=== PATIENT | female | born 1995 | race African-American/Black ===

== ENCOUNTER 2016-11-21 11:56 | Emergency (ER) | payer MEDICAID ==
[~2016-11-21] VITALS: Ht 154.9 cm; Wt 70.6 kg
[2016-11-21 11:58] VITALS: BP 129/69
== END 2016-11-21 12:47 | disposition home or self-care (01) ==
LOC: ED 12:41
DX: O26.891 Other specified pregnancy related conditions, first trimester (principal); J02.0 Streptococcal pharyngitis
CPT/HCPCS: 99283

== ENCOUNTER 2016-11-30 15:30 | Emergency (ER) | payer MEDICAID ==
[~2016-11-30] VITALS: Ht 167.6 cm; Wt 69.4 kg
[2016-11-30] MEDS ORDERED: SODIUM CHLORIDE 0.9% 1,000ML IVBOLUS ONE (16:00)
[2016-11-30] MEDS ORDERED: SODIUM CHLORIDE FLUSH 10ML SYR IVF ONE (16:00)
[2016-11-30 16:45] LABS: BLOOD UREA NITROGEN 11 mg/dL (7-18)
[2016-11-30 17:04] LABS: ANISOCYTOSIS 1+
[2016-11-30 17:05] LABS: ASPARTATE AMINO TRANSFERASE 11 U/L (15-37); HYPOCHROMIA 1+; MICROCYTOSIS 1+
[2016-11-30 17:23] VITALS: BP 104/55
[2016-11-30] MEDS ORDERED: CEFTRIAXONE PMX 1GM/50ML 50 ML ONE (17:40)
[2016-11-30] MEDS ORDERED: CEFTRIAXONE PMX 1GM/50ML 50 ML IV ONE (18:00)
== END 2016-11-30 18:17 | disposition home or self-care (01) ==
LOC: ED 18:08
DX: O23.12 Infections of bladder in pregnancy, second trimester (principal); N30.90 Cystitis, unspecified without hematuria; O23.41 Unspecified infection of urinary tract in pregnancy, first trimester; N39.0 Urinary tract infection, site not specified; Z3A.14 14 weeks gestation of pregnancy
CPT/HCPCS: 36415; 76801; 80053; 81001; 84702; 85025; 87086; 87147; 96361; 96365; 99285; J0696; J7030

== ENCOUNTER 2017-02-01 20:34 | Outpatient (CLI) | payer MEDICAID ==
[~2017-02-01] VITALS: Ht 167.6 cm; Wt 75.0 kg
[2017-02-01 21:01] LABS: DAU SCREEN DISCLAIMER
[2017-02-01] MEDS ORDERED: AMOXICILLIN 500 MG CAPSULE PO ONE (22:00)
== END 2017-02-01 22:00 | disposition home or self-care (01) ==
LOC: LDOP 20:34
PROVIDERS: ATTEND Student in an Organized Health Care Education/Training Program
DX: O26.892 Other specified pregnancy related conditions, second trimester (principal); R10.9 Unspecified abdominal pain; R35.0 Frequency of micturition; M54.5 Low back pain; Z3A.22 22 weeks gestation of pregnancy
CPT/HCPCS: 59025; 80307; 81001; 87077; 87086; 87186; 99211; G0463

== ENCOUNTER 2017-04-07 19:10 | Outpatient (CLI) | payer MEDICAID | END 2017-04-07 20:50 | disposition home or self-care (01) | LOC: LDOP 19:10 | PROVIDERS: ATTEND Student in an Organized Health Care Education/Training Program | DX: O26.893 Other specified pregnancy related conditions, third trimester (principal); O62.9 Abnormality of forces of labor, unspecified; M54.9 Dorsalgia, unspecified; Z3A.31 31 weeks gestation of pregnancy | CPT/HCPCS: 59025; 99211; G0463 ==

== ENCOUNTER 2017-04-13 11:35 | Emergency (ER) | payer MEDICAID ==
[~2017-04-13] VITALS: Ht 167.6 cm; Wt 81.6 kg
[2017-04-13 11:36] VITALS: BP 133/78
[2017-04-13] MEDS ORDERED: LIDOCAINE 1%, 20ML SQ ONE (12:30)
== END 2017-04-13 13:33 | disposition home or self-care (01) ==
LOC: ED 13:27
DX: O26.893 Other specified pregnancy related conditions, third trimester (principal); L02.411 Cutaneous abscess of right axilla; Z3A.38 38 weeks gestation of pregnancy
CPT/HCPCS: 10060; 99283; J3490

== ENCOUNTER 2017-05-19 13:05 | Outpatient (CLI) | payer MEDICAID ==
[2017-05-19 13:52] VITALS: BP 125/58
== END 2017-05-19 15:23 | disposition home or self-care (01) ==
LOC: LDOP 13:05
PROVIDERS: ATTEND Student in an Organized Health Care Education/Training Program
DX: O42.92 Full-term premature rupture of membranes, unspecified as to length of time between rupture and onset of labor (principal); Z3A.38 38 weeks gestation of pregnancy
CPT/HCPCS: 59025; 89060; 99201; G0463; Q0114

== ENCOUNTER 2017-05-29 01:30 | Inpatient (IN) | payer MEDICAID ==
[~2017-05-29] VITALS: Ht 167.6 cm; Wt 87.0 kg
[2017-05-29] MEDS ORDERED: OXYTOCIN 30U/ 0.9% NaCL 500ML 500 ML IV ONE (03:42)
[2017-05-29] MEDS ORDERED: NEWBORN KIT ONE (03:42)
[2017-05-29] MEDS ORDERED: D5%-LACTATED RINGERS 1,000 ML IV SCH (03:42)
[2017-05-29] MEDS ORDERED: OXYTOCIN 30U/ 0.9% NaCL 500ML 500 ML IV PRN (03:42)
[2017-05-29] MEDS ORDERED: OXYTOCIN 30U/ 0.9% NaCL 500ML 500 ML ONE ×2 (03:42→16:59)
[2017-05-29] MEDS ORDERED: LACTATED RINGERS 1,000 ML IV SCH ×3 (03:42→04:55)
[2017-05-29] MEDS ORDERED: METOCLOPRAMIDE 5 MG/ML, 2ML IVPush PRN (04:00)
[2017-05-29] MEDS ORDERED: ONDANSETRON 2MG/ML, 2ML IVPush PRN (04:00)
[2017-05-29] MEDS ORDERED: TERBUTALINE 1 MG/ML, 1ML SQ PRN (04:00)
[2017-05-29] MEDS ORDERED: PENICILLIN GK 5,000,000 UNITS in DEXTROSE 5% 100 ML IVPB ONE (04:00)
[2017-05-29] MEDS ORDERED: SODIUM CITRATE/CITRIC ACID 30 ML UDC PO PRN (04:00)
[2017-05-29] MEDS ORDERED: FENTANYL PF 100 MCG/2ML IVPush PRN (04:00)
[2017-05-29] MEDS ORDERED: FENTANYL PF 100 MCG/2ML IV PRN (04:00)
[2017-05-29 04:13] LABS: HEMOGLOBIN 9.8 g/dL (11.7-16.4)
[2017-05-29] MEDS ORDERED: FENTANYL PF 100 MCG/2ML ONE (04:16)
[2017-05-29 04:25] LABS: BLOOD UREA NITROGEN 8 mg/dL (7-18)
[2017-05-29 04:29] LABS: ASPARTATE AMINO TRANSFERASE 21 U/L (15-37)
[2017-05-29] MEDS ORDERED: FENTANYL/BUPIV./NS/PF 250 ML EPIDCONT SCH ×2 (04:55)
[2017-05-29] MEDS ORDERED: FENTANYL/BUPIV./NS/PF 250 ML EPIDCONT ONE (04:57)
[2017-05-29] MEDS ORDERED: BUPIVACAINE/PF 0.25% ONE (04:57)
[2017-05-29] MEDS ORDERED: EPHEDRINE 50 MG/ML, 1ML IVPush PRN ×2 (05:00)
[2017-05-29] MEDS ORDERED: LACTATED RINGERS 1,000 ML IVBOLUS PRN ×2 (05:00)
[2017-05-29] MEDS ORDERED: NALOXONE 0.4 MG/ML, 1ML IVPush PRN ×2 (05:00)
[2017-05-29] MEDS ORDERED: BUPIVACAINE 0.25% ONE (05:05)
[2017-05-29] MEDS: PENICILLIN GK 2,500,000 UNITS in DEXTROSE 5% 100 ML IVPB SCH ×2 (08:34→12:56)
[2017-05-29] MEDS ORDERED: TERBUTALINE 1 MG/ML, 1ML ONE (13:53)
[2017-05-29] MEDS: OXYTOCIN 30U/ 0.9% NaCL 500ML 500 ML IV SCH (16:38)
[2017-05-29] MEDS ORDERED: ONDANSETRON 2MG/ML, 2ML IV PRN (17:00)
[2017-05-29] MEDS ORDERED: METOCLOPRAMIDE 5 MG/ML, 2ML IV PRN (17:00)
[2017-05-29] MEDS ORDERED: BISACODYL 10 MG SUPP PR PRN (17:00)
[2017-05-29] MEDS ORDERED: OXYcodone/APAP 5/325MG TABLET PO PRN (17:00)
[2017-05-29] MEDS ORDERED: MISOPROSTOL 200 MCG TABLET PR PRN (17:00)
[2017-05-29] MEDS ORDERED: ACETAMINOPHEN 325 MG TABLET PO PRN (17:00)
[2017-05-29] MEDS ORDERED: GLYCERIN ADULT SUPP PR PRN (17:00)
[2017-05-29] MEDS ORDERED: IBUPROFEN 800 MG TABLET PO PRN (17:00)
[2017-05-29] MEDS ORDERED: OXYcodone/APAP 5/325MG TABLET ONE ×2 (18:08→23:28)
[2017-05-29 19:30] VITALS: BP 138/78
[2017-05-29] MEDS ORDERED: IBUPROFEN 600 MG TABLET ONE (23:28)
[2017-05-29 23:30] VITALS: BP 126/69
[2017-05-29] MEDS: OXYcodone/APAP 5/325MG TABLET PO PRN (23:32)
[2017-05-29] MEDS: IBUPROFEN 600 MG TABLET PO PRN (23:32)
[2017-05-30 01:33] LABS: HEMATOCRIT 29.6 % (34.6-47.8); HEMOGLOBIN 9.7 g/dL (11.7-16.4); WHITE BLOOD COUNT 12.3 x10^3/uL (4.5-13.2)
[2017-05-30] MEDS: OXYTOCIN 30U/ 0.9% NaCL 500ML 500 ML IV SCH ×3 (02:38→22:38)
[2017-05-30 04:04] VITALS: BP 128/63
[2017-05-30 07:30] VITALS: BP 129/72
[2017-05-30] MEDS ORDERED: PRENATAL VIT/IRON/FA 1 EACH TABLET ONE (07:44)
[2017-05-30] MEDS: DOCUSATE 100 MG CAPSULE PO PRN (07:52)
[2017-05-30] MEDS: IBUPROFEN 600 MG TABLET PO PRN ×3 (07:53→22:46)
[2017-05-30] MEDS: OXYcodone/APAP 5/325MG TABLET PO PRN (07:53)
[2017-05-30] MEDS: PRENATAL VIT/IRON/FA 1 EACH TABLET PO SCH (07:53)
[2017-05-30 12:00] VITALS: BP 127/81
[2017-05-30] MEDS: FERROUS SULFATE 325 MG TABLET PO SCH ×2 (16:21→22:46)
[2017-05-30 19:37] VITALS: BP 131/86
[2017-05-31 07:09] VITALS: BP 131/87
[2017-05-31] MEDS: PRENATAL VIT/IRON/FA 1 EACH TABLET PO SCH (07:26)
[2017-05-31] MEDS: DOCUSATE 100 MG CAPSULE PO PRN (07:26)
[2017-05-31] MEDS: IBUPROFEN 600 MG TABLET PO PRN ×2 (07:26→13:32)
[2017-05-31] MEDS: FERROUS SULFATE 325 MG TABLET PO SCH (07:28)
[2017-05-31] MEDS: OXYTOCIN 30U/ 0.9% NaCL 500ML 500 ML IV SCH (07:32)
[2017-05-31] MEDS ORDERED: IBUP-1222 PO (14:05)
[2017-05-31] MEDS ORDERED: FERR325T23 PO (14:07)
[2017-05-31] MEDS ORDERED: OXYC-302 PO (14:07)
== END 2017-05-31 16:00 | disposition home or self-care (01) | DRG 775 ==
LOC: LDOP 01:30 → LDIP 03:20 → 2NE 18:02 → 2NW 05-30 06:44
PROVIDERS: ADMIT Student in an Organized Health Care Education/Training Program; ATTEND Student in an Organized Health Care Education/Training Program
PROC: 10E0XZZ Delivery of Products of Conception, External Approach (ICD-10-PCS; principal; 2017-05-29)
PROC: 3E0R3BZ Introduction of Anesthetic Agent into Spinal Canal, Percutaneous Approach (ICD-10-PCS; 2017-05-29)
PROC: 00HU33Z Insertion of Infusion Device into Spinal Canal, Percutaneous Approach (ICD-10-PCS; 2017-05-29)
PROC: 10907ZC Drainage of Amniotic Fluid, Therapeutic from Products of Conception, Via Natural or Artificial Opening (ICD-10-PCS; 2017-05-29)
DX: O99.824 Streptococcus B carrier state complicating childbirth (principal); Z37.0 Single live birth; Z3A.39 39 weeks gestation of pregnancy
CPT/HCPCS: 36415; 80053; 81001; 82248; 82570; 82803; 84156; 84550; 85025; 86850; 86900; J2540; J3010; J3490; J2590; J3105; J7120